=== PATIENT | female | born 1970 | race Asian ===

== ENCOUNTER 2019-03-26 15:30 | Emergency (ER) | payer OTHER ==
[~2019-03-26] VITALS: Ht 167.6 cm; Wt 57.2 kg
[2019-03-26 15:34] VITALS: BP 138/67; Ht 167.6 cm; Wt 57.2 kg
== END 2019-03-26 15:57 | disposition home or self-care (01) ==
LOC: ED 15:30
DX: Z13.9 Encounter for screening, unspecified (principal); R19.7 Diarrhea, unspecified